=== PATIENT | male | born 1955 | race Two or more races ===

== ENCOUNTER 2024-12-27 16:38 | Inpatient (IN) | payer MEDICARE, OTHER ==
[~2024-12-27] VITALS: Ht 165.1 cm; Wt 80.3 kg
[2024-12-27] MEDS ORDERED: ESCI10TA PO (17:21)
[2024-12-27] MEDS ORDERED: ATOR80TA PO (17:21)
[2024-12-27] MEDS ORDERED: POLY15DR31 EACHEYE (17:21)
[2024-12-27] MEDS ORDERED: CHOL100045 PO (17:21)
[2024-12-27] MEDS ORDERED: INSU3INS6 SQ (17:21)
[2024-12-27] MEDS ORDERED: IBUP-1488 PO (17:21)
[2024-12-27] MEDS ORDERED: INSU100C4 SQ ×2 (17:21)
[2024-12-27] MEDS ORDERED: CARV3.122 PO (17:21)
[2024-12-27] MEDS ORDERED: NA P133E RC (17:21)
[2024-12-27] MEDS ORDERED: MAGN400O6 PO (17:21)
[2024-12-27] MEDS ORDERED: LORA-258 PO (17:21)
[2024-12-27] MEDS ORDERED: ASPI81TA31 PO (17:21)
[2024-12-27] MEDS ORDERED: BISA10SU61 RC (17:21)
[2024-12-27] MEDS ORDERED: GABA100C PO (17:21)
[2024-12-27] MEDS ORDERED: ACET325C7 PO (17:21)
[2024-12-27] MEDS ORDERED: THIA100T88 PO (17:21)
[2024-12-27] MEDS ORDERED: ASCO500C18 PO (17:21)
[2024-12-27 18:58] LABS: PLATELET COUNT (AUTO) 133 K/uL (152-348); RED BLOOD CELL COUNT(AUTO) 4.52 MIL/uL (4.06-5.63); RED CELL DISTRIBUTION WIDTH 13.9 % (12.1-16.2); WHITE BLOOD COUNT (AUTO) 9.1 K/uL (3.6-10.2)
[2024-12-27 19:07] LABS: CREATININE 0.9 mg/dL (0.6-1.3); SODIUM SERUM 143 mmol/L (136-145); UREA NITROGEN, BLOOD 18 mg/dL (7-18)
[2024-12-27 19:12] LABS: ETHANOL < 3 MG/DL (0-10)
[2024-12-27 19:14] LABS: ASPARTATE AMINOTRANSFERASE 25 U/L (15-37); TOTAL PROTEIN, SERUM 7.5 g/dL (6.4-8.2)
[2024-12-27 19:31] LABS: *BILIRUBIN,URIN NEGATIVE (NEGATIVE); *BLOOD, URINE NEGATIVE (NEGATIVE); *CLARITY,URINE CLEAR (CLEAR); *COLOR,URINE YELLOW (YELLOW); *KETONES,URINE TRACE (NEGATIVE); *PROTEIN,URINE 1+ (NEGATIVE); *UROBILINOGEN,URINE 2.0 E.U./dl (NORMAL); LEUKOCYTE ESTERASE ,URINE NEGATIVE (NEGATIVE); NITRITE, URINE NEGATIVE (NEGATIVE); UGLUCOSE NEGATIVE (NEGATIVE)
[2024-12-27 19:42] LABS: *AMPHETAMINE, URINE NEGATIVE (NEGATIVE); *BARBITURATE, URINE NEGATIVE (NEGATIVE); *BENZODIAZEPINE, URINE NEGATIVE (NEGATIVE); *CANNABINOID, URINE NEGATIVE (NEGATIVE); *COCCAINE, URINE NEGATIVE (NEGATIVE); *OPIATE, URINE NEGATIVE (NEGATIVE); *PHENCYCLIDINE SCREEN,URINE NEGATIVE (NEGATIVE); FENTANYL, URINE NEGATIVE (NEGATIVE)
[2024-12-27 23:30] VITALS: BP 138/68; TEMP 98.1; O2SAT 96
[2024-12-28] MEDS ORDERED: MAGNESIUM HYDROXIDE 30 ML LIQUID UDC PO PRN ×2 (00:15→12:15)
[2024-12-28] MEDS ORDERED: ZOLPIDEM 5 MG TABLET PO PRN (00:15)
[2024-12-28] MEDS: QUETIAPINE FUMARATE 25 MG TABLET PO ONE (00:15)
[2024-12-28] MEDS: BLOOD SUGAR DIAGNOSTIC 1 EACH STRIP VI ONE (00:55)
[2024-12-28 08:02] LABS: GLUCOSE FASTING 145.0 mg/dL (70-115)
[2024-12-28] MEDS ORDERED: BISACODYL 10 MG SUPP.RECT RC PRN (12:15)
[2024-12-28] MEDS ORDERED: FLEET ENEMA 133 ML BOTTLE RC PRN (12:15)
[2024-12-28] MEDS ORDERED: DEXTROSE 50% 50 ML DISP.SYRIN IV PRN (12:15)
[2024-12-28] MEDS ORDERED: IBUPROFEN 400 MG TABLET PO PRN (12:15)
[2024-12-28] MEDS: GABAPENTIN 100 MG CAPSULE PO SCH (14:00)
[2024-12-28] MEDS: BLOOD SUGAR DIAGNOSTIC 1 EACH STRIP VI SCH (16:29)
[2024-12-28] MEDS ORDERED: INSULIN ASPART 300 UNIT/3 ML CARTRIDGE SQ SCH (18:00)
[2024-12-28] MEDS: QUETIAPINE FUMARATE 25 MG TABLET PO SCH (20:46)
[2024-12-28] MEDS: ZOLPIDEM 5 MG TABLET PO PRN (20:46)
[2024-12-28] MEDS: ATORVASTATIN 40 MG TABLET PO SCH (20:47)
[2024-12-28] MEDS: CARVEDILOL 3.125 MG TABLET PO SCH (20:48)
[2024-12-29 07:45] VITALS: BP 144/50; TEMP 98; O2SAT 97
[2024-12-29] MEDS: INSULIN REGULAR, HUMAN 1000 UNIT/10 ML VIAL SQ PRN (08:19)
[2024-12-29] MEDS ORDERED: CHOLECALCIFEROL PO SCH (09:00)
[2024-12-29] MEDS: ASCORBIC ACID 500 MG TABLET PO SCH (09:02)
[2024-12-29] MEDS: THIAMINE HCL 100 MG TABLET PO SCH (09:02)
[2024-12-29] MEDS: ASPIRIN 81 MG TAB.CHEW PO SCH (09:03)
[2024-12-29] MEDS: CHOLECALCIFEROL 1,000 UNIT TABLET PO SCH (09:03)
[2024-12-29] MEDS: GLUCERNA SHAKE 237 ML CAN PO SCH (17:00)
[2024-12-29 19:36] VITALS: BP 119/42
[2024-12-29 19:42] VITALS: BP 119/45
[2024-12-29] MEDS: MIRTAZAPINE 15 MG TABLET PO SCH (20:29)
[2024-12-30 08:13] VITALS: BP 128/67; TEMP 98; O2SAT 98
[2024-12-30 15:43] VITALS: BP 119/68; TEMP 98; O2SAT 100
[2024-12-30 19:56] VITALS: BP 126/75; TEMP 98.2; O2SAT 100
[2024-12-30] MEDS: QUETIAPINE FUMARATE 25 MG TABLET PO SCH (20:11)
[2024-12-30] MEDS: INSULIN REGULAR, HUMAN 300 UNITS/3 ML VIAL SQ PRN (20:14)
[2024-12-31 07:30] VITALS: BP 90/51; TEMP 98; O2SAT 98
[2024-12-31 16:02] VITALS: BP 105/51; TEMP 98; O2SAT 98
[2025-01-01 07:32] LABS: ASPARTATE AMINOTRANSFERASE 49 U/L (15-37); CREATININE 0.6 mg/dL (0.6-1.3); SODIUM SERUM 136 mmol/L (136-145); TOTAL PROTEIN, SERUM 6.8 g/dL (6.4-8.2); UREA NITROGEN, BLOOD 24 mg/dL (7-18)
[2025-01-01] MEDS: QUETIAPINE FUMARATE 25 MG TABLET PO SCH (12:53)
[2025-01-01 15:20] VITALS: BP 133/59; TEMP 98; O2SAT 96
[2025-01-02] MEDS: QUETIAPINE FUMARATE 25 MG TABLET PO PRN (00:36)
[2025-01-02 08:35] VITALS: BP 150/42; TEMP 98; O2SAT 96
[2025-01-02 16:51] VITALS: BP 108/60; TEMP 98; O2SAT 96
[2025-01-03 08:24] VITALS: BP 148/70; TEMP 98; O2SAT 96
[2025-01-03 16:59] VITALS: BP 114/73; TEMP 98; O2SAT 96
[2025-01-03 20:10] VITALS: BP 132/72; TEMP 98; O2SAT 98
[2025-01-04] MEDS: QUETIAPINE FUMARATE 25 MG TABLET PO SCH (08:19)
[2025-01-04 09:42] VITALS: BP 115/65; TEMP 98; O2SAT 98
[2025-01-04 16:16] VITALS: BP 127/71; TEMP 98; O2SAT 98
[2025-01-05 08:45] VITALS: BP 119/62; TEMP 98.4; O2SAT 97
[2025-01-05 11:25] LABS: ASPARTATE AMINOTRANSFERASE 22.0 U/L (15-37); CREATININE 0.7 mg/dL (0.6-1.3); SODIUM SERUM 138.0 mmol/L (136-145); TOTAL PROTEIN, SERUM 7.2 g/dL (6.4-8.2); UREA NITROGEN, BLOOD 16.0 mg/dL (7-18)
[2025-01-05 15:55] VITALS: BP 112/57; TEMP 98.1; O2SAT 98
[2025-01-06 08:14] VITALS: BP 100/47; TEMP 98; O2SAT 100
[2025-01-06] MEDS ORDERED: REMEDY ESSENTIAL ZINC PASTE 113 GM TOP PRN (15:15)
[2025-01-06 15:28] VITALS: BP 102/80; TEMP 98; O2SAT 98
[2025-01-06 19:50] VITALS: BP 127/70; TEMP 98.1; O2SAT 100
[2025-01-06 20:00] VITALS: BP 122/70; TEMP 98.1; O2SAT 100
[2025-01-06] MEDS: MAG HYDROX/AL HYDROX/SIMETH 30 ML LIQUID UDC PO PRN (20:45)
[2025-01-07 07:58] VITALS: BP 147/50; TEMP 98; O2SAT 98
[2025-01-07] MEDS: ACETAMINOPHEN 325 MG TABLET PO PRN (14:04)
[2025-01-07 15:34] VITALS: BP 124/71; TEMP 98; O2SAT 98
[2025-01-07 20:06] VITALS: BP 130/51; TEMP 97.8; O2SAT 96
[2025-01-08 08:09] VITALS: BP 105/47; TEMP 98.2; O2SAT 98
[2025-01-08 15:39] VITALS: BP 108/52; TEMP 98.2; O2SAT 98
[2025-01-08 20:24] VITALS: BP 111/51; TEMP 98.1; O2SAT 98
[2025-01-09 08:20] VITALS: BP 119/45; TEMP 97.8; O2SAT 96
[2025-01-09 16:36] VITALS: BP 122/69; TEMP 97.8; O2SAT 96
[2025-01-10] MEDS: QUETIAPINE FUMARATE 25 MG TABLET PO SCH ×2 (08:20→20:26)
[2025-01-10 16:31] VITALS: BP 117/61; TEMP 97.8; O2SAT 96
[2025-01-10] MEDS: METFORMIN HCL 500 MG TABLET PO SCH (18:00)
[2025-01-10] MEDS: ATORVASTATIN 20 MG TABLET PO SCH (20:26)
[2025-01-11] MEDS: PANTOPRAZOLE SODIUM 40 MG TABLET.DR PO SCH (07:06)
[2025-01-11] MEDS: ASPIRIN EC 81 MG TABLET.DR PO SCH (08:14)
[2025-01-11] MEDS: CHOLECALCIFEROL 1,000 UNIT TABLET PO SCH (08:15)
[2025-01-11 08:22] VITALS: BP 134/82; TEMP 98.6; O2SAT 98
[2025-01-11 16:39] VITALS: BP 115/77; TEMP 98.6; O2SAT 98
[2025-01-12] MEDS: IBUPROFEN 400 MG TABLET PO PRN (06:22)
[2025-01-12 07:21] VITALS: TEMP 98.6
[2025-01-12 08:24] VITALS: BP 127/60
== END 2025-01-12 13:15 | DRG 885 ==
LOC: ER 16:57 → GPS 21:45
PROVIDERS: ADMIT Psychiatry & Neurology Psychiatry; ATTEND Student in an Organized Health Care Education/Training Program
DX: F29 Unspecified psychosis not due to a substance or known physiological condition (principal); I11.0 Hypertensive heart disease with heart failure; I69.354 Hemiplegia and hemiparesis following cerebral infarction affecting left non-dominant side; G93.40 Encephalopathy, unspecified; E44.0 Moderate protein-calorie malnutrition; F01.53 Vascular dementia, unspecified severity, with mood disturbance; F01.518 Vascular dementia, unspecified severity, with other behavioral disturbance; R13.10 Dysphagia, unspecified; K21.9 Gastro-esophageal reflux disease without esophagitis; G89.29 Other chronic pain; Z74.09 Other reduced mobility; E87.5 Hyperkalemia; E66.9 Obesity, unspecified; Z68.29 Body mass index [BMI] 29.0-29.9, adult; D69.6 Thrombocytopenia, unspecified; E88.09 Other disorders of plasma-protein metabolism, not elsewhere classified; F32.9 Major depressive disorder, single episode, unspecified; Z79.4 Long term (current) use of insulin; Z79.899 Other long term (current) drug therapy; M15.9 Polyosteoarthritis, unspecified; I25.10 Atherosclerotic heart disease of native coronary artery without angina pectoris; I50.9 Heart failure, unspecified; E86.0 Dehydration; E11.9 Type 2 diabetes mellitus without complications; E78.5 Hyperlipidemia, unspecified
CPT/HCPCS: 36415; 85025; 85049; G0480; J1815